=== PATIENT | female | born 1950 | race Caucasian/White ===

== ENCOUNTER 2021-12-09 10:48 | Inpatient (IN) | payer OTHER ==
--- OUTSIDE RECORDS SUMMARY | 2021-12-09 10:57 | XMS REPORT | Continuity of Care Document ---
:1950 Author Organization [facility] t Address [address] [place] [address] Care Team Providers Name Role Phone ELIDA GONZALES Primary Care Physician Unavailable ABRAHAN PARNELL Attending Clinician Unavailable MARÍA SANTOS Attending Clinician Unavailable DR TURNER SERRATO Attending Clinician Unavailable JAMES SMITH Attending Clinician Unavailable DR TURNER SERRATO Attending Clinician Unavailable ABRAHAN PARNELL Admitting Clinician Unavailable MARÍA SANTOS Admitting Clinician Unavailable DR TURNER SERRATO Admitting Clinician Unavailable JAMES SMITH Admitting Clinician Unavailable MARÍA SANTOS Admitting Clinician Unavailable Payers Payer Name Policy Type Policy Number Effective Date Expiration Date S rosa [id number] 1959 00:00:00 [id number] 1959 00:00:00 Problems This patient has no known problems. Allergies, Adverse Reactions, Alerts Allergy Allergy Status Severity Reaction(s) Onset Inactive Treating Comm ents Source Name Type Date Date Clinician Sulfa(Moreno DA Active Unknown [facility] (LUF/LI V/SA) Social History Smoking Status Start Date Stop Date Source [facility] (LUF/NIKKO/SA) Medications Ordered Filled Start Stop Current Ordering Indication Dosage Frequency Signature Comments Components Source Medication Medication Date Date Medication? Clinician (SIG) Name Name vitamin b vitamin b Yes [address] [facility] 12 1000mcq 12 1000mcq daily Malorie kes tab tab Memoria l (LUF/LI V/SA) vitamin b6 vitamin b6 Yes 1 [address]xD [address] [facility] 50mg 50mg daily [facility] (LUF/LI V/SA) 24 HR 24 HR Yes 25mg [address]xD [facility] metoprolol metoprolol Darius es succinate succinate Memor ia 25 MG 25 MG l Extended Extended (LUF/LI Release Release V/SA) Oral Tablet Oral Tablet aluminum aluminum Yes 10mL 4xD [facility] hydroxide hydroxide [facility] 40 MG/ML / 40 MG/ML / Mem oria magnesium magnesium l hydroxide hydroxide (LUF/ LI 40 MG/ML / 40 MG/ML / V/S A) simethicone simethicone 4 MG/ML 4 MG/ML Oral Oral Suspension Suspension amlodipine amlodipine Yes 5mg 1xD [facility] 5 MG Oral 5 MG Oral [facility] Tablet Tablet Memoria l (LUF/LI V/SA) aspirin aspirin Yes 81mg [address]xD [facility] (LUF/LI V/SA) calcium calcium Yes [address] [address] carbonate carbonate [facility] 1500 MG / 1500 MG / Memor ia cholecalcif cholecalcif l kay 0.01 kay 0.01 (LUF/ LI MG Oral MG Oral V/SA) Tablet Tablet fluoxetine fluoxetine Yes 20mg 1xD [facility] (LUF/LI V/SA) hydrochloro hydrochloro Yes [address] thiazide thiazide [facility] 12.5 MG / 12.5 MG / Memor ia valsartan valsartan l 160 MG Oral 160 MG Oral ( LUF/LI Tablet Tablet V/SA) levothyroxi levothyroxi Yes 75ug 1xD [facility] ne ne [facility] (LUF/LI V/SA) nitroglycer nitroglycer Yes .4mg [facility] in 0.4 MG in 0.4 MG [facility] Sublingual Sublingual Mem oria Tablet Tablet l (LUF/LI V/SA) omeprazole omeprazole Yes 20mg 1xD [facility] (LUF/LI V/SA) vitamin b vitamin b Yes 1 1xD [facility] 12 1000mcq 12 1000mcq Darius es tab tab Memoria l (LUF/LI V/SA) vitamin b6 vitamin b6 Yes [address] [facility] 50mg 50mg [facility] (LUF/LI V/SA) 24 HR 24 HR Yes 25mg 2xD orally [address] metoprolol metoprolol times per [facility] succinate succinate day Memor ia 25 MG 25 MG l Extended Extended (LUF/LI Release Release V/SA) Oral Tablet Oral Tablet aluminum aluminum Yes 10mL 4xD orally [address] [facility] [facility] hydroxide hydroxide times per [facility] 40 MG/ML / 40 MG/ML / day as M emoria magnesium magnesium needed. l hydroxide hydroxide (administe (LUF/LI 40 MG/ML / 40 MG/ML / r between V/SA) simethicone simethicone meals and 4 MG/ML 4 MG/ML at Oral Oral bedtime) Suspension Suspension amlodipine amlodipine Yes 5mg 1xD orally [facility] 5 MG Oral 5 MG Oral daily (in [facility] Tablet Tablet PM) Memoria l (LUF/LI V/SA) aspirin aspirin Yes 81mg 1xD orally [facility] daily (in [facility] AM) Memoria l (LUF/LI V/SA) calcium calcium Yes [address] [facility] carbonate carbonate daily Luke s 1500 MG / 1500 MG / Memor ia cholecalcif cholecalcif l kay 0.01 kay 0.01 (LUF/ LI MG Oral MG Oral V/SA) Tablet Tablet fluoxetine fluoxetine Yes 20mg 1xD orally [facility] daily (in [facility] AM) Memoria l (LUF/LI V/SA) hydrochloro hydrochloro Yes [address] [facility] thiazide thiazide daily [facility] 12.5 MG / 12.5 MG / Memor ia valsartan valsartan l 160 MG Oral 160 MG Oral ( LUF/LI Tablet Tablet V/SA) levothyroxi levothyroxi Yes 75ug 1xD orally [facility] ne ne daily [facility] (LUF/LI V/SA) nitroglycer nitroglycer Yes .4mg sublingual [facility] in 0.4 MG in 0.4 MG ly every 5 [facility] Sublingual Sublingual minutes as Memoria Tablet Tablet needed. l (until (LUF/LI response; V/SA) do not exceed 3 doses per episode) omeprazole omeprazole Yes 20mg 1xD orally [facility] daily [facility] (LUF/LI V/SA) Vital Signs Vital Name Observation Time Observation Value Comments Source Height 2021-08-20 20:11:00 167.64 CM Weight 2021-08-20 20:11:00 60 KG Procedures Procedure Date / Time Performing Clinician Source Performed Catheterization of left 2018-11-30 00:00:[address] [facility] (LUF/NIKKO/SA) Encounters Start End Encounter Admission Attending Care Care Encounter Source Date/Time Date/Time Type Type Clinicians Facility Department ID 2021-08-20 2021-08-21 Emergency 1 SILAS PARNELL EMD [id number] 19:15:00 03:02:00 ABRAHAN [facility] (LUF/LI V/SA) 2020-02-22 2020-02-22 Inpatient 3 TOM, [facility] [id number] 14:10:00 23:59:00 MARÍA VARELA Malorie kes , [address] [facility] ([facility]/LI , AGRAWAL V/SA) [place] [address] 2020-02-22 2020-02-22 Inpatient [facility] [id number] [facility] 00:00:00 00:00:00 AVERY VARELA [id number] Sandi , 511 [id number] [facility] [id number] [facility] (F/LI ST, AGRAWAL V/SA) [place] [address] 2020-02-06 2020-02-06 Inpatient 3 BACHKAYLYN, [facility] [id number] [facility] 12:02:00 23:59:00 TURNER [facility] [address] (LUF/LI AVE, V/SA) [place] [address] 2020-02-06 2020-02-06 Inpatient [facility] [id number] [facility] 00:00:00 00:00:00 WIRTZ [id number] [facility], [id number] Memor ia [id number] (LUF/LI AVE, V/SA) [place] [address] 2020-01-24 2020-01-24 [facility] [id number] 09:38:00 23:59:00 ENLARGED MARÍA Mayes ukes LYMPH , [address] [facility] (F/LI ST, AGRAWAL V/SA) [place] [address] 2020-01-24 2020-01-24 Inpatient [facility] [id number] 00:00:00 00:00:00 [facility] [id number] [facility] , 511 [id number] [facility] [id number] [facility] (LUF/LI ST, AGRAWAL V/SA) [place] [address] 2019-10-31 2019-10-31 ENC SCR 3 TOM, [facility] [id number] 09:35:00 23:59:00 MAMMO MARÍA [facility] MALIG , [address] [facility] (LUF/LI ST, AGRAWAL V/SA) [place] [address] 2018-04-04 2018-04-04 ENC SCR 3 BLACHER, [facility] [id number] 10:38:00 23:59:00 MAMMO JAMES [facility] MAL , [address] [facility] (LUF/LI ST, AGRAWAL V/SA) [place] [address] 2017-06-20 2017-06-20 PAIN IN 3 TOM, [facility] [id number] 08:41:00 23:59:00 RIGHT MARÍA [facility] , [address] [facility] (LUF/LI ST, AGRAWAL V/SA) [place] [address] 2017-05-26 2017-05-26 CHEST PAIN BACHIREDDY, [facility] [id number] [facility] 09:02:00 23:59:[address] [facility] [address] [place] [address] [place] (LUF/LI AVE, V/SA) [place] [address] 2017-04-22 2017-04-22 CHEST PAIN BACHIREDDY, [facility] [id number] [facility] 07:34:00 23:59:00 [facility] [address] (LUF/LI AVE, V/SA) [place] [address] 2017-04-21 2017-04-21 CHEST PAIN 3 BACHIREDDY, [facility] [id number] [facility] 10:06:00 23:59:00 UNSPECIFIE [facility] Malorie kes [place], [facility] [address] (LUF/LI AVE, V/SA) [place] [address] Results Test Description Test Time Test Comments Results Result Comments Source HIGH SENSITIVITY TROPONIN 2021-08-21 02:09:00 Test Item Value Reference Range Interpretation Comme nts HIGH SENSITIVITY TROPONIN (test 8.3 pg/ml 0.0-34.0 CHANGE IN TEST METHOD A change code = TNIH) in the test met hod for Troponin has gone into e ffect. We now test for High S ensitivity Troponin. The n ew units of measure are pg/ mL, and the new 99th percentile cutoff of 34 pg/mL for FEMAL E and 53 pg/mL for MALE. New c ritical values will be called for any troponin greater than or equal to 500 pg/mL. STLMLXR CHEST AP/PA 1 [id number] 00:41:13 [facility] (LUF/NIKKO/SA)Name: NABILA AUGUSTINE : 1950 Sex: FPROCEDURE INFORMATION:Exam: XR ChestExam date and time: 08/20/2021 11:15 PMAge: 70 years oldClinical indication: Pain; Chest pressure; Patient HX: AfibTECHNIQUE:Imaging protocol: Radiologic exam of the chest.Views: 1 view.COMPARISON:No relevant prior studies available.FINDINGS:Lungs: The lungs are symmetrically expanded the, with prominence of thepulmonary vasculature with cephalization the. Opacification of the right mediallung apex.Pleural spaces: No large pleural effusion. No pneumothorax.Heart/Mediastinum: Cardiac silhouette is prominent in size, with a globularcontour.Vasculature: Aortic archcalcification.Bones/joints: Multilevel osseous degenerative changes.IMPRESSION:1. Prominence of the cardiac silhouette may represent cardiomegaly and/orpericardial effusion, with findings compatible with pulmonary vascularcongestion.2. Nonspecific right apical opacification medially may represent prominentcentral vasculature, with airspace disease not excluded. Correlation with priorimaging if available may be helpful to assess for stability or follow-up withcross-sectional imaging as clinically indicated.This Final report was electronically signed by Percy Graf MD on 20210215:40 AM CDT.Dictated By: EUNICE GRAFate: 08/21/2021 00:40STLMLTSH (Ultra Sensitive)2021-08-21 00:40:00 Test Item Value Reference Range Interpretation Comments TSH (test code = TSH) 1.55 mIU/L 0.35-3.74 [id number] 23:17:00 Test Item Value Reference Range Interpretation Comments aPTT (test code = PTT) 25.8 seconds 23.9-30.7 [facility] [id number] 23:17:00 Test Item Value Reference Range Interpretation Comments Protime (test code 10.9 seconds 9.5-12.1 = PT) INR (test code = 1.0 0.9-1.1 INR results are INR) intended ONLY t o monitor Oral Anticoagulant t herapy in stablized pa tients. The INR Therape utic Range is 2.0 - 3.0 Patients with a mechanical hear t, the INR Range is 2. 5 - 3.5 [facility] [id number] 23:10:00 Test Item Value Reference Range Interpretation Comments Troponin-I (test 0.00 ng/ml 0.00-0.08 The 99th Pe rcentile URL is code = TROP) 0.08 ng/mL for the Lawson iStat Troponin I. The Joint Society of Cardiology/Amer ican College of Card iology (ESC/ACC) and t he National Academy of Clin ical Biochemistry St andards of Laboratory Prac tices (NACB) recommen ds that the diagnosis of AM I includes the presence of clinical history suggest jessika of Acute Coronary Syndrome (ACS) and a max imum concentration o f cardiac troponin exceed ing the 99th percentile of a normal referenc e population [upp er reference limit (URL)] on at least one oc casion during the firs t 24 hours after the clini ivory event. [facility] CHEM [id number] 23:01:00 Test Item Value Reference Range Interpretation Comments Sodium (test code = NA) 137 mmol/l 138-146 L Potassium (test code = K) 3.7 mmol/l 3.5-4.9 IONIZED CALCIUM (test code = ICA) 1.23 1.12-1.32 AA Chloride (test code = CL) 101 mmol/l 98-109 Glucose (test code = GLU) 123 mg/dl 70-105 H Creatinine (test code = CREA) 0.5 mg/dl 0.6-1.3 L BUN (test code = BUN) 19 mg/dl 6-17 H CO2 (test code = CO2) 28.0 mmol/l 24.0-29.0 [facility] CBC WITH AUTO [id number] 23:00:00 Test Item Value Reference Range Interpretation Comments WBC (test code = WBC) 6.37 10\\S\\3/ul 4.80-10.80 RBC (test code = RBC) 4.85 10\\S\\6/ul 4.20-5.40 Hemoglobin (test code = HGB) 14.9 gm/dl 12.0-14.0 H Hematocrit (test code = HCT) 44.5 % 37.0-47.0 MCV (test code = MCV) 91.8 fL 81.0-99.0 MCH (test code = MCH) 30.7 pg 27.0-31.0 MCHC (test code = MCHC) 33.5 gm/dl 33.0-37.0 Platelet (test code = PLT) 281 10\\S\\3/ul 130-400 RDW (test code = RDWVC) 12.9 % 11.5-14.5 MPV (test code = MPV) 9.5 fL 7.4-10.4 A NE% (test code = NE) 65.4 % 42.0-75.0 LY% (test code = LY) 20.9 % 13.0-42.0 MO% (test code = MO) 10.2 % 4.0-14.0 EO% (test code = EO) 2.5 % 1.0-3.0 BA% (test code = BA) 0.8 % 1.0-3.0 L IG% (test code = IG%) 0.2 % 0.0-0.4 STLMLMM MAMMO SCRN 3D [id number] 14:39:31 [facility] ([facility]/SA)Name: NABILA AUGUSTINE : 1950 Sex: FProcedures: MM MAMMO SCRN 3D TOMOOrder Date: 01/21/2021 11:00 AMOrdering Provider: ELIDA GONZALESClinical Indication: Digital screening mammography using 3D tomosynthesis withCAD.Comparison: October 31, 2019, April 04, 2018Technique: Digital craniocaudad and mediolateral oblique views of both breastswere obtained with 3D tomosynthesis. The exam is interpreted utilizing thebenefit of CAD daryn hnology.Findings:There are scattered fibroglandular densities in each breast.There are no suspiciousmasses in either breast.Marker clip from prior percutaneous biopsy in the central to inferior rightbreast. Results are benign according to the patient. There are benigncalcifications in each breast. There are no suspicious calcifications in eitherbreast.There are no pathologic skin or nipple alterations.Impression:1. Benign digital screening mammograms.2. Recommend annual mammographic follow up with 3D tomosynthesis.3. Patient is entered into a reminder system with a target due date for the nextmammogram in one year.BIRADS Result 2: Benign findings.This final report was electronically signed by Dr Hardy Raman MD :33 PMDictated By: HARDY RAMANDate: 01/21/2021 14:33STLMLXR WRIST COMP MIN 3 [id number] 15:00:26 [facility] ([facility]/NIKKO/SA)Name: NABILA AUGUSTINE : [id number] Sex: FProcedure: XR WRIST COMP MIN 3 VWSOrder Date: 02/22/2020 2:24 PMOrdering Physician: ELIDA STEPHENSClinical Indication: [id number]: Pain of left wristComparison: NoneFINDINGS:No fracture or dislocation.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 No acute fracture or dislocation.2. 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 No other significant findings.This final report was electronically signed by Dr Hardy Raman MD 02/22/2020 3:00PMDictated By: HARDY RAMANDate: 02/22/2020 15:00[facility] CHEST 2 PA [id number] 14:18:49This does not generate apatient charge. Must be charged in batch charging after procedure is complete.[facility] ([facility]/NIKKO/SA)Name: NABILA AUGUSTINE : [id number] Sex: FProcedure: HIET XR CHEST 2 PA LATERALOrder date: 02/06/2020 1:55 PMOrdering Provider: DR TURNER SERRATOClinical Indication: [id number]: Paroxysmal atrial fibrillationComparison: 11/28/18Findings:Cardiomegaly.The lungs are clear.No pleural effusion or pneumothorax. Osseous structures are nonacute.No evidence of active tuberculosis.Impression:Cardiomegaly. Otherwise, no acute cardiopulmonary process.This final report was electronically signed by Dr Peggy Jefferson MD 02/06/20202:12 PMDictated By: PEGGY JEFFERSONDate: 02/06/2020 14:12[facility] OF WIRTZCT CHEST [id number] 17:00:11 [facility] ([facility]/SA)Name: NABILA AUGUSTINE : [id number] Sex: FProcedure: CT CHEST W/CONTRASTOrder Date: 01/24/2020 10:30 AMOrdering Provider: ELIDA JOHNSON EYClinical Indication: [id number]: Lymphadenopathy. Abnormal outside chestradiograph.Comparison: NoneTechnique: Helically acquired axial images were obtained through the chest. Lowosmolar IV contrast wasgiven. Coronal and Sagittal reformats were obtained.This exam was performed according to the our departmental dose-optimizationprogram which includes automated exposure control, adjustment of the mA and/orkV according to patient size and/or use of iterative reconstruction techniques.Findings:No lobar consolidation, pleural effusion, or pneumothorax.Tracheobronchial tree is normal in course and caliber without intraluminallesion. There is no bronchiectasis.Heart is normal in size without significant pericardial effusion. Dilatedappearance of the left atrium. Coronary artery calcifications are seen.No mediastinal or axillary adenopathy. No hilar adenopathy.Thyroid gland is normal. No supraclavicularadenopathy.There is a hiatal hernia. Correlate for previous surgical intervention forrepair this aris ia.Osseous structures are intact. Scoliotic curvature of the spine.Impression:1. No acute pulmonary process. No suspicious pulmonary mass.2. Dilated left atrium.3. Hiatal hernia with suggestion of previous surgical intervention in thisregion. Correlate with history.This final report was electronicallysigned by Dr Christiano Norwood MD 01/24/20204:53 PMDictated By: NIKKI NORWOODKDate: 01/24/2020 16:53[facility] NT[facility] (BUN)2020-01-24 10:11:00 Test Item Value Reference Range Interpretation Comments BUN (test code = BUN) 18.0 mg/dl 6.0-17.0 H [facility], [id number] 10:11:00 Test Item Value Reference Range Interpretation Comments Creatinine (test 0.8 mg/dl 0.4-1.2 code = CREA) EGFR if >60 [place] (test code mL/min/1.73m\\ = EGFRAA) S\\2 EGFR if Non- >60 Estimate d Glomerular [place] (test code mL/min/1.73m\\ Filtrat ion Rate (eGFR) = EGFRNA) S\\2 Reference Inter vals Decision Points for 18 years and older and average body ma ss: >= 60 Does not exc lude kidney disease. 30 - 59 Suggests mod erate chronic kidney disease and indicates t he need for further investigation including asses sment of proteinuria and cardiovascular factors. < 30 U sually indicates a nee d for referral for assessment and management of c hronic kidney failure. [facility] MAMMO SCRN 3D [id number] 10:22:42 Procedures: MM MAMMO SCRN 3D AGUSTINA with CAD with 3-D tomosynthesisOrder date: 10/31/2019 10:00 AMOrdering Provider: ELIDA Hancock Indication: Digital screening mammography.Comparison: 11/02/2018Technique: Digital craniocaudad and mediolateral oblique views of both breastswere obtained. Bilate ral 3-D tomosynthesis was performed and interpreted. Thisexamination was performed with the benefit of CAD.Findings:The breasts are heterogeneously dense which lowers the mammographic sensitivityto detect malignancy. Sequence noted within the 6:00 position of the rightbreast.There are no suspicious masses in either breast.There are benign calcifications in each breast.There are no pathologic skin or nipple alterations.Impression:1. Benign digital screening 3-D mammograms.2. Recommend annual mammographic followup.3. Patient is entered into a reminder system with a target due date for the next3-D mammogram in one year.BIRADS Result 2: Benign findings.This final report was electronically signed by Domenica Jefferson MD 10/31/201910:16 AMDictated By: PEGGY JEFFERSONDate: 10/31/2019 10:16MMI[facility] CAROTID BILAT [id number] 11:45:45Procedure: CAROTID BILAT DopplerOrder Date: 12/06/2018 10:45 AMOrdering Provider: ELIDA Hancock Indication: Dizziness, carotid bruitComparison: NoneTECHNIQUE : Real-time cerebrovascularultrasonography was obtained from sternalnotch to the angle of the mandible bilaterally utilizing llamas scale, color flowand spectral Doppler analysis. Systolic velocity ratios were calculated forinternal carotid artery to common carotid artery bilaterally.FINDINGS:RIGHT CAROTID BIFURCATION: Minimal atherosclerotic plaque. Peak systolic andend-diastolic velocities in the right internal carotid artery a re within normallimits. Internal carotid/common carotid ratio is within normal limits. Rightvertebral flow is antegrade.LEFT CAROTID BIFURCATION: Minimal atherosclerotic plaque. Peak systolic andend-diastolic velocities in the left internal carotid artery are within normallimits. Internal carotid/common carotid ratio is within normal limits. Leftvertebral flow is antegrade.IMPRESSION:1. Minimal atherosclerotic plaque in each carotid bulb and ICA origin.2. There is no significant stenosis (less than 15%) at either ICA origin.3. Bilateral antegrade vertebral artery flow.This final report was electronically signed by Dr Peggy Jefferson MD 12/06/201811:39 AMDictated By: PEGGY JEFFERSONDate: 12/06/2018 11:39[facility] NGHIA VARELAHIET XR CHEST 2 PA [id number] 17:05:03 This does not generate apatient charge. Must be charged in batch charging after procedure is complete.Procedure: HIET XR CHEST 2 PA LATERALOrder date: 11/28/2018 3:56 PMOrdering Provider: DR TURNER ARTHURDYClinical Indication: [id number]: Chest painComparison: 04/21/17indings:Cardiomediastinal silhouette is within normal limits.The lungs are clear.No pleural effusion or pneumothorax. Osseous structures are nonacute.No evidence of active tuberculosis.Impression:No acute cardiopulmonary process.This final report was electronically signed by Dr Peggy Jefferson MD 11/28/20184:58 PMDictated By: PEGGY JEFFERSONDate: 11/28/2018 16:58[facility] MAMMO SCRN 3D [id number] 12:07:48 Procedures: MM MAMMO SCRN 3D TOMOOrder Date: 04/04/2018 11:30 AMOrdering Provider: JAMES Camachoinical Indication: Digital screening mammography using 3D tomosynthesis withCAD.Comparison: NoneTechnique: Digital craniocaudad and mediolateral oblique views of both breastswere obtained with 3D tomosynthesis. The exam is interpreted utilizing thebenefit of CAD technology.Findings:The breasts are heterogeneously dense which lowers the mammographic sensitivityto detect malignancy.There are no suspicious masses in either breast.There is a marker clip from prior percutaneous biopsy noted in the central rightbreast. The results were benign according to the patient.Benign calcifications in each breast.No suspicious calcifications in either breast.There are no pathologic skin or nipple alterations.Impression:1. Benign digital screening mammograms.2. Recommend annual mammographic followup with 3D tomosynthesis.3. Patient is entered into a reminder system with a target due date for the nextmammogram in one year.BIRADS Result 2: Benign findings.This final report was electronically signed by Dr Hardy Raman MD 04/04/201812:01 PMDictated By: HARDY RAMANDate: 04/04/2018 12:01[facility] AGRAWAL AUGUSTINEMRI SHOULDER WO [id number] 12:21:47"If patient is claustrophobic, contact ordering ysician for additional instructions."Procedure: MRI SHOULDER WO CONTRASTOrder Date: 06/20/2017 10:00 AMOrdering Provider: ELIDA Ellisinical Indication: PAIN IN RIGHT SHOULDERComparison: NoneTechnique: Multiplanar MRI of the right shoulder was obtained without theadministration of intravenous contrast. There is patient motion slightlylimiting detail. The exam is still felt to be of diagnostic quality.Findings:There is a full-thickness tear of the supraspinatus tendon at the insertionsite. There is no significant tendon retraction.Thereis a full- thickness tear of the infraspinatus tendon at the insertionsite.There is no significant tendon retraction.There is moderate free fluid in the subacromial/subdeltoid bursa.The subscapularis tendon is intact.The biceps tendon is in the normal anatomic groove.There is normal signal within the mu sculature of the shoulder.There is no joint effusion.There are no solid or cystic masses involving the subcutaneous or deep tissuesof the shoulder.There is no marrow signal abnormality within the visualized portions of thehumerus, scapula, or clavicle.Moderate arthrosis of the right glenohumeral and ac romioclavicular joints.Impression:1. Full-thickness tears of the right supraspinatus and infraspinatus tendons atthe insertion sites. No significant tendon retraction.2. No other evidence for internal derangement.3. Moderate arthrosis of the right glenohumeral and acromioclavicular joints.4. No other s ignificant findings.This final report was electronically signed by Dr Hardy Raman MD 06/20/201712:15PMDictated By: HARDY RAMANDate: 06/20/2017 12:21 [facility] XR CHEST 2 PA [id number] 13:24:58This does not generate apatient charge. Must be c harged in batch charging after procedure is complete.Procedure: HIET XR CHEST 2 PA LATERALOrder Date: 04/21/2017 10:14 AMOrdering Provider: DR TURNER Stricklandinical Indication: cpComparison: NoneFindings:The lungs are clear and well-aerated. No pleural effusion or pneumothorax.Cardiac silhouette is mildly enlarged. Vascular calcifications are seen in theaorta.Impression:No acute pulmonary process.This final report was electronically signed by Dr Christiano Norwood MD 04/21/20171:18 PMDictated By: NIKKI NORWOODKDate: 04/21/2017 13:24[facility]
[2021-12-09 11:35] LABS: Hematocrit 41.8 % (36.0-45.0); Lymphocytes % 19.6 % (15.3-44.8); MCV 92.7 fL (80-100); MPV 7.8 fL (7.6-11.3); RBC Red Blood Cell Count 4.51 M/uL (3.86-4.86)
[2021-12-09 11:41] LABS: Protime INR 1.64
[2021-12-09 12:20] LABS: Potassium 3.6 mmol/L (3.5-5.1); Troponin High Sensitivity 7.4 pg/mL (<58.9)
--- NOTE | 2021-12-09 12:35 | EDPHYS ---
Physician Documentation [facility] Name: Jade rAita Age: 71 yrs Sex: Female : 1950 Arrival Date: 12/09/2021 Time: 10:58 Bed 8 Private MD: ED Physician Adria Stevens HPI: 12/09 12:35 This 71 yrs old Female presents to ER via Ambulatory with complaints of Dizziness, ms3 Weakness, Low BP, Low Heart Rate. 20:24 The patient has shortness of breath with light activity. Onset: The symptoms/episode ms3 began/occurred 3 day(s) ago. Duration: The symptoms are continuous. The patient's shortness of breath has no apparent modifying factors. Associated signs and symptoms: The patient has no apparent associated signs or symptoms. 71-year-old female with past medical history of atrial fibrillation presents from Dr. Salazar's office for atrial fibrillation with RVR. Patient endorses shortness of breath. Patient denies pain. Patient denies alleviating or inciting factors.. Historical: - Allergies: 11:17 No Known Allergies; jl7 - PMHx: 11:17 Atrial fibrillation; jl7 - Immunization history:: Client reports receiving the 2nd dose of the Covid vaccine. - Social history:: Smoking status: Patient denies any tobacco usage or history of. ROS: 20:24 Constitutional: Negative for fever, and chills. Cardiovascular: Negative for chest ms3 pain, and palpitations. 20:24 Respiratory: Positive for shortness of breath. 20:24 All other systems are negative. Exam: 20:24 Constitutional: This is a well developed, well nourished patient who is awake, alert, ms3 and in no acute distress. Head/Face: Normocephalic, atraumatic. ENT: Nares patent. No nasal discharge, no septal abnormalities noted. Tympanic membranes are normal and external auditory canals are clear. Oropharynx with no redness, swelling, or masses, exudates, or evidence of obstruction, uvula midline. Mucous membranes moist. Neck: Trachea midline, no cervical lymphadenopathy. Supple, full range of motion without nuchal rigidity, or vertebral point tenderness. No Meningismus. Chest/axilla: Normal chest wall appearance and motion. Nontender with no deformity. 20:24 Cardiovascular: Rate: tachycardic, Rhythm: irregularly irregular, Pulses: no pulse deficits are appreciated, Heart sounds: normal, Edema: is not appreciated. 20:24 ECG was reviewed by the Attending Physician. Vital Signs: 11:16 BP 144 / 99; Pulse 110; Resp 17; Temp 97.2; Pulse Ox 100% ; Weight 58.97 kg; Height 5 jl7 ft. 6 in. (167.64 cm); Pain 0/10; 11:29 BP 137 / 93; Pulse 99; Resp 22; Pulse Ox 100% ; Pain 0/10; mb8 12:20 BP 130 / 89; Pulse 95; Resp 14; Pulse Ox 98% ; Pain 0/10; mb8 13:36 BP 142 / 93; Pulse 94; Resp 19; Pulse Ox 99% ; Pain 0/10; mb8 11:16 Body Mass Index 20.98 (58.97 kg, 167.64 cm) jl7 MDM: 11:28 Patient medically screened. ms3 20:24 Data reviewed: vital signs, nurses notes, lab test result(s), EKG, radiologic studies, ms3 and as a result, I will admit patient. Counseling: I had a detailed discussion with the patient and/or guardian regarding: the historical points, exam findings, and any diagnostic results supporting the discharge/admit diagnosis, lab results, radiology results, the need for further work-up and treatment in the hospital. ED course: Discussed case with Dr Andrea prior to patient's arrival in ED. Patient to get Sotalol 80 mg BID if Cr normal. patient in office with a fib RVR. Discussed case with Dr Manning and accepts patient. All questions were answered. Patient remains in stable condition in the emergency department. Patient is aware of her observation status. 12/09 11:01 Order name: Basic Metabolic Panel; Complete Time: 12:21 ms3 12/09 11:01 Order name: CBC with Diff; Complete Time: 11:46 ms3 12/09 11:01 Order name: Magnesium; Complete Time: 12:21 ms3 12/09 11:01 Order name: PT-INR; Complete Time: 11:46 ms3 12/09 11:01 Order name: Troponin HS; Complete Time: 12:21 ms3 12/09 13:12 Order name: SARS RAPID ms3 12/09 11:01 Order name: XRAY Chest (1 view); Complete Time: 13:10 ms3 12/09 11:01 Order name: EKG; Complete Time: 11:02 ms3 12/09 13:21 Order name: CONS Physician Consult EDMS 12/09 13:21 Order name: Basic Metabolic Panel EDMS 12/09 13:21 Order name: Basic Metabolic Panel EDMS 12/09 13:21 Order name: CBC with Automated Diff EDMS 12/09 13:21 Order name: CBC with Automated Diff EDMS 12/09 11:01 Order name: Cardiac monitoring; Complete Time: 11:27 ms3 12/09 11:01 Order name: EKG - Nurse/Tech; Complete Time: 11:27 ms3 12/09 11:01 Order name: IV Saline Lock; Complete Time: 11:27 ms3 12/09 11:01 Order name: Labs collected and sent; Complete Time: 11:27 ms3 12/09 11:01 Order name: O2 Per Protocol; Complete Time: 11:27 ms3 12/09 11:01 Order name: O2 Sat Monitoring; Complete Time: 11:27 ms3 12/09 11:39 Order name: Labs - recollect needed: recollect c7; Complete Time: 11:47 bd 12/09 13:21 Order name: Regular EDMS 12/09 13:21 Order name: EKG Electrocardiogram EDMS 12/09 13:21 Order name: EKG Electrocardiogram EDMS 12/09 13:21 Order name: EKG Electrocardiogram EDMS 12/09 13:21 Order name: EKG Electrocardiogram EDMS EC:24 Rate is 97 beats/min. Rhythm is irregularly irregular. QRS [place] is Normal. QRS interval ms3 is normal. Clinical impression: Atrial Fibrillation. Interpreted by me. Reviewed by me. Administered Medications: 13:36 Drug: Sotalol 80 mg Route: PO; mb8 Disposition Summary: 12/09/21 12:35 Hospitalization Ordered Hospitalization Status: Observation ms3 Provider: Rufino Manning ms3 Location: Telemetry/MedSurg (observation) ms3 Condition: Stable ms3 Problem: new ms3 Symptoms: are unchanged ms3 Bed/Room Type: Standard ms3 Room Assignment: 419(12/09/21 15:38) bd Diagnosis - Persistent atrial fibrillation ms3 - Shortness of breath ms3 Forms: - Medication Reconciliation Form ms3 - SBAR form ms3 Signatures: Dispatcher [employer] EDDodie Hall Jahala, RN RN jl7 Adria Stevens DO DO ms3 Jovi Solis RN RN mb8 Corrections: (The following items were deleted from the chart) 15:38 12:35 ms3 bd
--- NOTE | 2021-12-09 12:35 | ER ---
Nurse's Notes [facility] Name: Jade Arita Age: 71 yrs Sex: Female : 1950 Arrival Date: 12/09/2021 Time: 10:58 Bed 8 Private MD: Diagnosis: Persistent atrial fibrillation;Shortness of breath Presentation: 12/09 11:16 Chief complaint: Patient states: Sent by Dr. Andrea for low blood pressure and jl7 currently in A. Fib. Coronavirus screen: At this time, the client does not indicate any symptoms associated with coronavirus-19. Ebola Screen: No symptoms or risks identified at this time. Initial Sepsis Screen: Does the patient meet any 2 criteria? No. Patient's initial sepsis screen is negative. Does the patient have a suspected source of infection? No. Patient's initial sepsis screen is negative. Risk Assessment: Do you want to hurt yourself or someone else? Patient reports no desire to harm self or others. Onset of symptoms is unknown. 11:16 Method Of Arrival: Ambulatory jl7 11:16 Acuity: RODDY 2 jl7 Triage Assessment: 11:18 General: Appears in no apparent distress. uncomfortable, Behavior is calm, cooperative, jl7 appropriate for age. Pain: Denies pain. Historical: - Allergies: 11:17 No Known Allergies; jl7 - PMHx: 11:17 Atrial fibrillation; jl7 - Immunization history:: Client reports receiving the 2nd dose of the Covid vaccine. - Social history:: Smoking status: Patient denies any tobacco usage or history of. Screenin:28 Abuse screen: Denies threats or abuse. Denies injuries from another. Nutritional mb8 screening: No deficits noted. Tuberculosis screening: No symptoms or risk factors identified. Fall Risk None identified. Assessment: 11:08 Reassessment: Dr. Stevens in triage assessing pt. jl7 11:20 General: Appears in no apparent distress. Behavior is calm, cooperative, appropriate mb8 for age. Pain: Denies pain. Neuro: No deficits noted. Cardiovascular: Reports fatigue, palpitations, shortness of breath, Denies chest pain, diaphoresis, nausea, vomiting, Capillary refill < 3 seconds Patient's skin is warm and dry. Chest pain is denied. Respiratory: No deficits noted. 11:20 Cardiovascular: Rhythm is atrial fibrillation. mb8 12:20 Reassessment: Patient and/or family updated on plan of care and expected duration. Pain mb8 level reassessed. Patient is alert, oriented x 3, equal unlabored respirations, skin warm/dry/pink. 13:36 Reassessment: Patient and/or family updated on plan of care and expected duration. Pain mb8 level reassessed. Patient is alert, oriented x 3, equal unlabored respirations, skin warm/dry/pink. Vital Signs: 11:16 BP 144 / 99; Pulse 110; Resp 17; Temp 97.2; Pulse Ox 100% ; Weight 58.97 kg; Height 5 jl7 ft. 6 in. (167.64 cm); Pain 0/10; 11:29 BP 137 / 93; Pulse 99; Resp 22; Pulse Ox 100% ; Pain 0/10; mb8 12:20 BP 130 / 89; Pulse 95; Resp 14; Pulse Ox 98% ; Pain 0/10; mb8 13:36 BP 142 / 93; Pulse 94; Resp 19; Pulse Ox 99% ; Pain 0/10; mb8 11:16 Body Mass Index 20.98 (58.97 kg, 167.64 cm) jl7 Vitals: 11:29 Cardiac Rhythm Assessment Atrial fibrillation. mb8 12:20 Cardiac Rhythm Assessment Atrial fibrillation. mb8 13:36 Cardiac Rhythm Assessment Atrial fibrillation. mb8 ED Course: 10:58 Patient arrived in ED. rg4 11:00 Adria Stevens DO is Attending Physician. ms3 11:17 Triage completed. jl7 11:18 Arm band placed on right wrist. jl7 11:25 Inserted saline lock: 20 gauge in right wrist, using aseptic technique. Blood mb8 collected. Patient maintains SpO2 saturation greater than 95% on room air. 11:27 Jovi Solis, VIRIDIANA is Primary Nurse. mb8 11:29 Patient has correct armband on for positive identification. Placed in gown. Bed in low mb8 position. Side rails up X2. Client placed on continuous cardiac and pulse oximetry monitoring. NIBP monitoring applied. hall monitor on. 11:29 No provider procedures requiring assistance completed. mb8 12:34 Rufino Manning MD is Hospitalizing Provider. ms3 12:45 XRAY Chest (1 view) In Process Unspecified. EDMS 13:36 SARS RAPID Sent. mb8 Administered Medications: 13:36 Drug: Sotalol 80 mg Route: PO; mb8 Medication: 11:29 VIS not applicable for this client. mb8 Outcome: 12:35 Decision to Hospitalize by Provider. ms3 15:54 Patient left the ED. mb8 Signatures: Dispatcher [employer] ED Kristy Ramirez rg4 Alexx Thapa RN RN jl7 Adria Stevens DO DO ms3 Jovi Solis RN RN mb8 Corrections: (The following items were deleted from the chart) 11:22 11:16 BP 114 / 99; Pulse 110bpm; Resp 17bpm; Pulse Ox 100%; Temp 97.2F; 58.97 kg; jl7 Height 5 ft. 6 in.; BMI: 20.9; Pain 0/10; jl7 11: 11:27 General: Appears in no apparent distress. Behavior is calm, cooperative, mb8 appropriate for age, mb8 11:27 Pain: Denies pain. mb8 mb8 11:27 Neuro: No deficits noted. mb8 mb8 11:27 Cardiovascular: Reports fatigue, palpitations, shortness of breath, Denies chest mb8 pain, diaphoresis, nausea, vomiting, Capillary refill < 3 seconds Patient's skin is warm and dry. Chest pain is denied mb8 11:27 Respiratory: No deficits noted. mb8 mb8
--- NOTE | 2021-12-09 13:07 | RAD REPORT ---
EXAM DESCRIPTION: RAD - Chest Single View - 12/09/2021 12:43 pm CLINICAL HISTORY: CHEST PAIN COMPARISON: None TECHNIQUE: AP portable chest image was obtained 12/09/2021 12:43 pm . FINDINGS: No focal mass or consolidation. Interstitial pattern is mildly prominent with no compariso n available. Cardiomegaly is present without acute vascular engorgement. No measurable pleural effusion and no pn eumothorax. No acute bony abnormality seen. No acute aortic findings suspected. IMPRESSION: No focal lung parenchymal abnormality identified. Cardiomegaly without other findings of failure or volume overload.
[2021-12-09] MEDS ORDERED: ACETAMINOPHEN 500 MG TAB PO PRN (13:17)
[2021-12-09] MEDS ORDERED: SOTALOL HCL 80 MG TAB ONE (13:27)
[2021-12-09 13:54] VITALS: BMI 20.9
[2021-12-09 13:55] LABS: SARS-CoV-2 Antigen Rapid Res Negative (Negative)
[2021-12-10 06:01] LABS: Absolute Lymphocytes (CBC) 0.9 K/uL (0.7-4.9); Hematocrit 38.5 % (36.0-45.0); Lymphocytes % 20.3 % (15.3-44.8); MCV 92.3 fL (80-100); MPV 7.5 fL (7.6-11.3); RBC Red Blood Cell Count 4.17 M/uL (3.86-4.86)
[2021-12-10 06:19] LABS: Potassium 3.6 mmol/L (3.5-5.1)
[2021-12-10] MEDS: ASPIRIN EC 81 MG TAB PO SCH (07:55)
--- NOTE | 2021-12-10 14:30 | EKG ---
Test Date: 2021-12-10 Test Time: 06:33:39 Will Call Order Clerk: HB MEASUREMENT RESULTS: Intervals: Rate: 89 TX: QRSD: 88 QT: 418 QTc: 508 [place]: P: TX: QRS: 33 T: 4 INTERPRETIVE STATEMENTS: Atrial fibrillation RSR' or QR pattern in V1 suggests right ventricular conduction delay Prolonged QT Abnormal ECG Compared to ECG 12/09/2021 11:24:22 Prolonged QT interval now present ST (T wave) deviation no longer present Electronically Signed On 12-10-21 14:28:13 CDT by John Andrea
--- NOTE | 2021-12-10 14:33 | EKG ---
Test Date: 2021-12-09 Test Time: 11:24:22 Automatic Paint Sprayer Operator: HALLEY MEASUREMENT RESULTS: Intervals: Rate: 97 UT: QRSD: 84 QT: 362 QTc: 459 [place]: P: UT: QRS: 30 T: -20 INTERPRETIVE STATEMENTS: Atrial fibrillation RSR' or QR pattern in V1 suggests right ventricular conduction delay Nonspecific ST and T wave abnormality, probably digitalis effect Abnormal ECG No previous ECG available for comparison Electronically Signed On 12-10-21 14:30:59 CDT by John Andrea
[2021-12-10] MEDS ORDERED: TRAZODONE 50 MG TABLET PO SCH (21:00)
--- NOTE | 2021-12-11 00:11 | CON ---
Date of Consultation: 12/10/2021 Reason For Consultation: Atrial fibrillation with rapid ventricle response. History Of Present Illness: 71-year-old female evaluated in the office yesterday and for the first t kirk found to be in atrial fibrillation with rapid ventricular response. The patient had some shortne ss of breath on exertion, but no chest pain. No nausea, vomiting, or diarrhea. No diaphoresis since she has been having palpitations. Past Medical History: None. Medications: None. Allergies: NO KNOWN DRUG ALLERGIES. Family History: No premature coronary artery disease or cancer. Social History: She does not smoke or drink. Does not use any drugs. Review of Systems: All systems reviewed and they are negative except for what is mentioned in HPI. Physical Examination: Vital Signs: Her temperature 97.2, pulse 87, breathing at 16, blood pressure is 115/70, saturating a t 97% on room air. General: Pleasant, elderly female, in no apparent distress. Head and Neck: Pupils are equal, reactive to light. Intact eye movements. No JVD. Neck is supple. Thyroid is not enlarged. Lungs: Clear to auscultation bilaterally. No rhonchi, wheezing, or crackles. No accessory muscle u se. Heart: Irregularly irregular. No extra sounds. Abdomen: Soft, nontender. Bowel sounds positive. No organomegaly. No masses or hernia. No rigidi ty or rebound. Extremities: No edema, clubbing, or cyanosis. Intact pulses. Skin: No rashes. Neurologic: Alert, awake, oriented x3. No acute focal deficits appreciated. Investigations: BUN 16, creatinine 0.72. Troponins are negative and hemoglobin is 13, white blood c ell count is 4.5. Assessment And Recommendations: 1.Atrial fibrillation with rapid ventricular response. Started on sotalol 80 mg by mouth twice a da y and to do an EKG early tomorrow morning. If QTc interval is normal, then she can be released home and will start her on apixaban 5 mg twice a day as well. 2.Shortness of breath, likely due to her atrial fibrillation and possible diastolic heart failure. We will plan for echo to be done as an outpatient. /KEITH Voice ID: [id number] Report ID: [id number]
[2021-12-11] MEDS ORDERED: SOTALOL HCL 80 MG TAB PO SCH ×2 (06:00→18:02)
[2021-12-11] MEDS ORDERED: LEVOTHYROXINE SOD 0.075 MG TAB PO SCH (07:30)
[2021-12-11] MEDS ORDERED: hydroCHLOROthiazide 12.5 MG CAP PO SCH (09:00)
[2021-12-11] MEDS ORDERED: VENLAFAXINE HCL XR 37.5MG CAP PO SCH (09:00)
[2021-12-11] MEDS ORDERED: APIXABAN 5 MG TABLET PO SCH (09:00)
[2021-12-11] MEDS ORDERED: VALSARTAN 160 MG TAB PO SCH (09:00)
[2021-12-11 09:11] VITALS: BP 117/76; TEMP 97.8
[2021-12-11 09:56] VITALS: O2SAT 96
[2021-12-11] MEDS: ASPIRIN EC 81 MG TAB PO SCH (11:12)
--- NOTE | 2021-12-11 14:42 | EKG ---
Test Date: 2021-12-11 Test Time: 10:57:49 Mold Stamper And Repairer: TOR MEASUREMENT RESULTS: Intervals: Rate: 92 UT: QRSD: 78 QT: 412 QTc: 509 [place]: P: UT: QRS: 20 T: -10 INTERPRETIVE STATEMENTS: Atrial fibrillation RSR' or QR pattern in V1 suggests right ventricular conduction delay Nonspecific ST and T wave abnormality, probably digitalis effect Prolonged QT Abnormal ECG Compared to ECG 12/11/2021 05:46:06 RSR' in V1 or V2 now present ST (T wave) deviation still present Electronically Signed On 12-11-21 14:42:13 CDT by John Andrea
--- NOTE | 2021-12-11 14:43 | EKG ---
Test Date: 2021-12-11 Test Time: 05:46:06 Engineering Mechanic: HB MEASUREMENT RESULTS: Intervals: Rate: 78 [place]: QRSD: 86 QT: 438 QTc: 499 [place]: P: CO: QRS: 23 T: -17 INTERPRETIVE STATEMENTS: Atrial fibrillation Nonspecific ST abnormality, probably digitalis effect Prolonged QT Abnormal ECG Compared to ECG 12/10/2021 06:33:39 ST (T wave) deviation now present Electronically Signed On 12-11-21 14:42:21 CDT by John Andrea
--- NOTE | 2021-12-12 04:59 | PN ---
Date of Progress Note: 12/11/2021 Subjective: Seen by bedside. Heart rate is improved. Review of Systems: No chest pain, shortness of breath, orthopnea, or cough. No nausea, vomiting, or diarrhea. No abdom inal pain. No history of urinary urgency. All other systems reviewed are negative. Physical Examination: Vital Signs: Temperature 97.8, pulse 83, breathing at 16, blood pressure is 117/76, saturating 98% o n room air. General: Pleasant elderly female, no apparent distress. Head and Neck: Pupils are equal, reactive to light. Intact eye movements. No JVD. No cervical lym phadenopathy. Neck is supple. Thyroid is not enlarged. Lungs: Clear to auscultation bilaterally. No rhonchi, wheezing, or crackles. No accessory muscle u se. Heart: Irregularly irregular. No extra sounds. Abdomen: Soft, nontender. Bowel sounds positive. No organomegaly. No masses or hernia. No rigidi ty or rebound. Extremities: No edema, clubbing, or cyanosis. Intact pulses. Skin: No rash. Neuro: Alert, awake, and oriented x3. No acute focal deficits appreciated. Investigations: BUN 16, creatinine 0.72, hemoglobin is 13. Assessment And Recommendation: 1.Atrial fibrillation with rapid ventricular response, rate now is controlled. Continue sotalol and obtain an EKG. If QTc interval is normal, patient can be released to follow up as an outpatient and continue apixaban. I will see her in [address] and will plan to adjust therapy accordin gly. 2.Hypertension. Blood pressure is controlled. Continue current management. SR/MODL Voice ID: [id number] Report ID: [id number]
--- NOTE | 2021-12-13 14:23 | PN ---
Subjective: Patient is stable. Has no chest pain, nausea, or vomiting. She is here for sotalol ora l tablets for possible conversion of AFib. She received a dose of sotalol last night but did not rec eive in the morning until the evening dose was available at 6:00 o'clock. Was allowed to stay 1 more day here until morning, so we can finish her 3 dosages of sotalol before she can go home. Otherwise , she is clinically stable. Continue sotalol and Eliquis. This atrial fibrillation is new for her. Dr. Zaidi on the case. SARA/KEITH Voice ID: [id number] Report ID: [id number]
== END 2021-12-11 11:35 | disposition home or self-care (01) | DRG 310 ==
LOC: ER 10:48 → ERHOLD 13:15 → 4TH 15:45 → OBSVTOIN 12-11 11:04
PROVIDERS: ADMIT Internal Medicine; ATTEND Internal Medicine
DX: I48.19 Other persistent atrial fibrillation (principal); I10 Essential (primary) hypertension; Z79.01 Long term (current) use of anticoagulants; Z79.899 Other long term (current) drug therapy; Z20.822 Contact with and (suspected) exposure to COVID-19
CPT/HCPCS: 36415; 71045; 80048; 83735; 84484; 85025; 85610; 87811; 93005; 99285; G0378

== ENCOUNTER 2022-01-01 11:00 | Day surgery (SDC) | payer OTHER ==
[2021-12-31 11:32] LABS: Hematocrit 38.8 % (36.0-45.0); Lymphocytes % 17.3 % (15.3-44.8); MCV 92.4 fL (80-100); MPV 8.1 fL (7.6-11.3)
[2021-12-31 11:37] LABS: Protime INR 1.74
[2021-12-31 11:42] LABS: Potassium 3.4 mmol/L (3.5-5.1)
[2022-01-01] MEDS ORDERED: FENTANYL CITR 100 MCG/2 ML ONE (11:14)
[2022-01-01] MEDS ORDERED: MIDAZOLAM HCL 2 MG/2 ML INJ ONE (11:15)
[2022-01-01] MEDS ORDERED: ATROPINE SULF 1 MG/10 ML SYR IV ONE (11:15)
[2022-01-01] MEDS ORDERED: PHENOL 1.4% ORAL SPRAY 180ML ONE (11:15)
[2022-01-01] MEDS ORDERED: LIDOCAINE VISCOUS 2% SOLN 15 ML UDC ONE ×2 (11:15)
[2022-01-01] MEDS ORDERED: MIDAZOLAM HCL 5 ML ONE (11:15)
[2022-01-01] MEDS ORDERED: NA CHLORIDE 0.9% 500 ML ONE (11:50)
[2022-01-01] MEDS ORDERED: AMIODARONE IN DEXTROSE,ISO-OSM 360 MG/200 ML BAG IV ONE (13:00)
--- NOTE | 2022-01-05 06:38 | TEE ---
TRANSESOPHAGEAL ECHOCARDIOGRAM REPORT CARDIOLOGY DEPARTMENT DATE OF STUDY: 01/01/2022 HEIGHT: 5 ft 6 in WEIGHT: 130 lbs DIAGNOSIS: ATRIAL FIBRILLATION, POSSIBLE CARDIOVERSION SUPERVISOR CURED MEATS COMMENTS: GOOD CARDIAC HISTORY: CATHERIZATION: SURGERY: PROSTHETIC VALVE: PACEMAKER: 2 DIMENSIONAL ASSESSMENT: RIGHT ATRIUM: NORMAL LEFT ATRIUM: NORMAL RIGHT VENTRICLE: NORMAL LEFT VENTRICLE: NORMAL TRICUSPID VALVE: MILD TRICUSPID REGURGITATION MITRAL VALVE: MILD MITRAL REGURGITATION PULMONIC VALVE: NORMAL AORTIC VALVE: NORMAL PERICARDIAL EFFUSION: NONE AORTIC ROOT: NORMAL EJECTION FRACTION: 55-60 % LEFT VENTRICULAR WALL MOTION: NORMAL DOPPLER/COLOR FLOW: MILD MITRAL REGURGITATION COMMENTS: 1. NO LEFT ATRIAL APPENDAGE THROMBUS 2. NORMAL LEFT VENTRICULAR EJECTION FRACTION 55-60% 3. MILD MITRAL REGURGITATION 4. MILD TRICUSPID REGURGITATION TECHNOLOGIST: YURI AUGUSTINE
== END 2022-01-01 15:22 | disposition home or self-care (01) ==
LOC: CCL 11:00
PROVIDERS: ATTEND Internal Medicine
DX: I48.91 Unspecified atrial fibrillation (principal); I10 Essential (primary) hypertension; Z79.01 Long term (current) use of anticoagulants; Z79.899 Other long term (current) drug therapy; Z88.2 Allergy status to sulfonamides; Z82.49 Family history of ischemic heart disease and other diseases of the circulatory system
CPT/HCPCS: 93312; 85025; 80048; 36415; 85610; 85730; 92960; J2250 ×2; J3010; J0282; J7040; J0461

== ENCOUNTER 2023-08-24 18:16 | Emergency (ER) | payer OTHER ==
--- NOTE | 2023-08-24 20:11 | RAD REPORT ---
EXAM DESCRIPTION: CT - Thorax Wo Con - 08/24/2023 7:58 pm CLINICAL HISTORY: Inferior lateral rib pain;Rib Pain - Left COMPARISON: No comparisons FINDINGS: Chest Wall: No suspicious thyroid nodules or pathologic lymphadenopathy. Lungs: No acute abnormality. Pleura: No significant effusions or pneumothorax. Mediastinum/kim: No pathologic lymphadenopathy. Small hiatal hernia. Likely prior fundoplication whi ch has slipped. Pulmonary arteries/Aorta: Limited evaluation without contrast. No aortic aneurysm. Heart: No significant pericardial effusion. Cardiomegaly. Mitral annular calcifications. Coronary art konrad calcifications. Aortic valve calcifications. Upper abdomen: No acute abnormality. Bones: Nondisplaced left anterior fifth rib fracture. All CT scans are performed using dose optimization technique as appropriate and may include automated exposure control or mA/KV adjustment according to patient size. IMPRESSION: Nondisplaced left anterior fifth rib fracture. No other rib fractures. No pneumothorax. Incidental findings as noted above.
--- NOTE | 2023-08-24 22:18 | EDPHYS ---
Physician Documentation [facility] Name: Jade Arita Age: 72 yrs Sex: Female : 1950 Arrival Date: 08/24/2023 Time: 18:16 Bed 19 Private MD: ED Physician Shamar Boyd HPI: 08/23 18:57 This 72 yrs old Female presents to ER via Ambulatory with complaints of Fall Injury, pm1 Rib Pain. 18:57 Details of fall: The patient fell from an upright position, while walking. Onset: The pm1 symptoms/episode began/occurred 2 day(s) ago. Associated injuries: The patient sustained anterior aspect of left lateral abdomen. Severity of symptoms: in the emergency department the symptoms are unchanged. The patient has not experienced similar symptoms in the past. The patient has not recently seen a physician. Patient tripped on her rug and landed on her left side of her body and reports left lateral rib pain. Negative for headache, head injury, neck pain, LOC. Historical: - Allergies: 18:48 No Known Allergies; tl4 - PMHx: 18:48 Atrial fibrillation; tl4 - PSHx: 18:48 Cardiac ablation (Atrial fibrillation); tl4 - Immunization history:: Adult Immunizations unknown. - Infectious Disease History:: Denies. - Social history:: Smoking status: Patient denies any tobacco usage or history of. ROS: 18:57 Constitutional: Negative for fever, chills, and weight loss, Cardiovascular: Negative pm1 for chest pain, palpitations, and edema, Respiratory: Negative for shortness of breath, cough, wheezing, and pleuritic chest pain, Back: Negative for injury and pain, 18:57 Abdomen/GI: Negative for abdominal pain, nausea, vomiting, diarrhea, and constipation, MS/Extremity: Negative for injury and deformity, Skin: Negative for injury, rash, and discoloration, Neuro: Negative for headache, weakness, numbness, tingling, and seizure, 18:57 All other systems are negative, Exam: 18:57 Constitutional: This is a well developed, well nourished patient who is awake, alert, pm1 and in no acute distress. Head/Face: Normocephalic, atraumatic. 18:57 Back: No spinal tenderness. No costovertebral tenderness. Full range of motion. Skin: Warm, dry with normal turgor. Normal color with no rashes, no lesions, and no evidence of cellulitis. MS/ Extremity: Pulses equal, no cyanosis. Neurovascular intact. Full, normal range of motion. 18:57 Chest/axilla: Inspection: normal, Palpation: crepitus, is not appreciated, tenderness, that is moderate, of the left lateral anterior chest, that totally reproduces the patient's complaints, 18:57 Cardiovascular: Exam negative for acute changes, 18:57 Respiratory: Exam negative for acute changes, respiratory distress, shortness of breath, 18:57 Abdomen/GI: Inspection: abdomen appears normal, Palpation: abdomen is soft and non-tender, in all quadrants, 18:57 Neuro: Exam negative for acute changes, Vital Signs: 18:50 BP 140 / 72; Pulse 70; Resp 16; Temp 97.6(TE); Pulse Ox 100% on R/A; Weight 58.97 kg; tl4 Height 5 ft. 6 in. ; Pain 8/10; 21:58 BP 173 / 83; Pulse 59; Pulse Ox 98% on R/A; Pain 5/10; tm6 22:29 BP 170 / 87; Pulse 59; Resp 19; Temp 97.5(TE); Pulse Ox 99% on R/A; Pain 4/10; tm6 18:50 Body Mass Index 20.98 (58.97 kg, 167.64 cm) tl4 18:50 Pain Scale: Adult tl4 21:58 Pain Scale: Adult tm6 22:29 Pain Scale: Adult tm6 MDM: 18:46 Patient medically screened. pm1 22:15 Data reviewed: vital signs. Counseling: I had a detailed discussion with the patient pm1 and/or guardian regarding the historical points, exam findings, and any diagnostic results supporting the discharge/admit diagnosis, radiology results, the need for outpatient follow up, to return to the emergency department if symptoms worsen or persist or if there are any questions or concerns that arise at home. 22:15 ED course: Patient refused medications for pain I offered in the ER, norco, codeine, pm1 tramadol. She plans to use over the counter medications for pain if needed. 08/23 18:57 Order name: CT Chest Wo Con; Complete Time: 20:18 pm1 Administered Medications: No medications were administered Disposition: 08/24 09:01 Co-signature as Attending Physician, Shamar Boyd MD I reviewed the patient's care rn provided by the Advanced Practice Provider and agree with the diagnosis and treatment plan. Disposition Summary: 08/24/23 22:17 Discharge Ordered Notes: Location: Home pm1 Problem: new pm1 Symptoms: have improved pm1 Condition: Stable pm1 Diagnosis - Fracture of one rib, left side pm1 - Fall on same level, unspecified pm1 Followup: pm1 - With: Emergency Department - When: As needed - Reason: Worsening of condition Followup: pm1 - With: Private Physician - When: 2 - 3 days - Reason: Recheck today's complaints, Continuance of care, Re-evaluation by your physician Discharge Instructions: - Discharge Summary Sheet pm1 - Rib Fracture pm1 - How to Use an Incentive Spirometer pm1 Forms: - Medication Reconciliation Form pm1 - Antibiotic Education pm1 - Prescription Opioid Use pm1 - Patient Portal Instructions pm1 - Leadership Thank You Letter pm1 Signatures: Dispatcher [employer] Shamar Dvais MD MD rn Marinas, Patrick, NP DIRECTOR MEDICAL AFFAIRS pm1 Emigdio Sykes RN RN tl4 Corrections: (The following items were deleted from the chart) 08/23 22:18 22:18 [email or web address] ordered. [facility]
--- NOTE | 2023-08-24 22:18 | ER ---
Nurse's Notes [facility] Name: Jade Arita Age: 72 yrs Sex: Female : 1950 Arrival Date: 08/24/2023 Time: 18:16 Bed 19 Private MD: Diagnosis: Fracture of one rib, left side;Fall on same level, unspecified Presentation: 08/23 18:46 Chief complaint: Patient states: Pt states she tripped and fell in the dark on Tuesday. tl4 Pt c/o pain in her left ribs. Pt denies LOC. Coronavirus screen: At this time, the client does not indicate any symptoms associated with coronavirus-19. Ebola Screen: No symptoms or risks identified at this time. Initial Sepsis Screen: Does the patient meet any 2 criteria? No. Patient's initial sepsis screen is negative. Does the patient have a suspected source of infection? No. Patient's initial sepsis screen is negative. Risk Assessment: Do you want to hurt yourself or someone else? Patient reports no desire to harm self or others. Onset of symptoms was August 22, 2023. 18:46 Method Of Arrival: Ambulatory tl4 18:46 Acuity: RODDY 3 tl4 Triage Assessment: 18:49 General: Appears uncomfortable, Behavior is calm, cooperative. Pain: Complains of pain tl4 in ribs. EENT: No signs and/or symptoms were reported regarding the EENT system. Neuro: Level of Consciousness is awake, alert, obeys commands, Oriented to person, place, time, situation, Moves all extremities. Full function Gait is steady, Speech is normal. Cardiovascular: Capillary refill < 3 seconds Patient's skin is warm and dry. Respiratory: Airway is patent Respiratory effort is even, unlabored, Respiratory pattern is regular, symmetrical. GI: No signs and/or symptoms were reported involving the gastrointestinal system. : No signs and/or symptoms were reported regarding the genitourinary system. Derm: No signs and/or symptoms reported regarding the dermatologic system. Musculoskeletal: Reports pain in right ribs. Historical: - Allergies: 18:48 No Known Allergies; tl4 - PMHx: 18:48 Atrial fibrillation; tl4 - PSHx: 18:48 Cardiac ablation (Atrial fibrillation); tl4 - Immunization history:: Adult Immunizations unknown. - Infectious Disease History:: Denies. - Social history:: Smoking status: Patient denies any tobacco usage or history of. Screenin:01 [facility] ED Fall Risk Assessment (Adult) History of falling in the last 3 months, tm6 including since admission Yes- single mechanical fall (1 pt) Confusion or Disorientation No (0 pts) Intoxicated or Sedated No (0 pts) Impaired Gait No (0 pts) Mobility Assist Device Used No (0 pt) Altered Elimination No (0 pt) Score/Fall Risk Level 0 - 2 = Low Risk Oriented to surroundings, Maintained a safe environment, Educated pt \T\ family on fall prevention, incl call for assistance when getting out of bed. Abuse screen: Denies threats or abuse. Denies injuries from another. Nutritional screening: No deficits noted. Tuberculosis screening: No symptoms or risk factors identified. Assessment: 22:01 General: Appears in no apparent distress. Behavior is calm, cooperative. Pain: tm6 Complains of pain in anterior aspect of left lateral abdomen Pain does not radiate. Pain currently is 5 out of 10 on a pain scale. Pain began 2-3 days ago. Pain: Aggravated by laying down. Neuro: Neuro: Level of Consciousness is awake, alert, obeys commands, Oriented to person, place, time, situation. Cardiovascular: Patient's skin is warm and dry. Respiratory: Airway is patent Respiratory effort is even, unlabored, Respiratory pattern is regular, symmetrical. GI: No signs and/or symptoms were reported involving the gastrointestinal system. Abdomen is flat, non-distended. : No signs and/or symptoms were reported regarding the genitourinary system. EENT: No signs and/or symptoms were reported regarding the EENT system. Derm: No signs and/or symptoms reported regarding the dermatologic system. Musculoskeletal: Reports pain in anterior aspect of left lateral abdomen since 2 days ago from fall. Pain is 5 out of 10 on a pain scale. 22:29 Reassessment: Patient and/or family updated on plan of care and expected duration. Pain tm6 level reassessed. Patient is alert, oriented x 3, equal unlabored respirations, skin warm/dry/pink. Vital Signs: 18:50 BP 140 / 72; Pulse 70; Resp 16; Temp 97.6(TE); Pulse Ox 100% on R/A; Weight 58.97 kg; tl4 Height 5 ft. 6 in. ; Pain 8/10; 21:58 BP 173 / 83; Pulse 59; Pulse Ox 98% on R/A; Pain 5/10; tm6 22:29 BP 170 / 87; Pulse 59; Resp 19; Temp 97.5(TE); Pulse Ox 99% on R/A; Pain 4/10; tm6 18:50 Body Mass Index 20.98 (58.97 kg, 167.64 cm) tl4 18:50 Pain Scale: Adult tl4 21:58 Pain Scale: Adult tm6 22:29 Pain Scale: Adult tm6 ED Course: 18:19 Patient arrived in ED. mg5 18:40 Nikolai Campbell NP is PHCP. pm1 18:40 Shamar Boyd MD is Attending Physician. pm1 18:48 Triage completed. tl4 18:49 Arm band placed on left wrist. tl4 19:58 CT Chest Wo Con In Process Unspecified. EDMS 21:08 Phil Britton, VIRIDIANA is Primary Nurse. tm6 22:01 Patient has correct armband on for positive identification. Bed in low position. Call tm6 light in reach. Side rails up X 1. Provided Education on: use of call reyes. Client placed on continuous cardiac and pulse oximetry monitoring. NIBP monitoring applied. Pulse ox on. NIBP on. Door closed. Noise minimized. Warm blanket given. 22:29 No provider procedures requiring assistance completed. Patient did not have IV access tm6 during this emergency room visit. Administered Medications: No medications were administered Medication: 22:01 VIS not applicable for this client. tm6 Outcome: 22:17 Discharge ordered by . pm1 22:29 Discharged to home ambulatory, tm6 22:29 Condition: stable 22:29 Discharge instructions given to patient, Instructed on discharge instructions, follow up and referral plans. Demonstrated understanding of instructions, follow-up care, 22:30 Patient left the ED. tm6 Signatures: Dispatcher [employer] EDMO Nikolai Campbell, TR CHIEF HUMAN RESOURCES OFFICER pm1 Karen Sanabria mg5 Phil Britton, RN RN tm6 Emigdio Sykes RN RN tl4
[2023-08-25 04:47] VITALS: BP 170/87; TEMP 97.5; O2SAT 99
== END 2023-08-24 22:30 | disposition home or self-care (01) ==
LOC: ER 18:16
DX: S22.32XA Fracture of one rib, left side, initial encounter for closed fracture (principal); W18.30XA Fall on same level, unspecified, initial encounter
CPT/HCPCS: 71250; 99283